=== PATIENT | female | born 1945 | race Caucasian/White ===

== ENCOUNTER 2017-09-17 23:30 | Emergency (ER) | payer OTHER ==
[2017-09-18 00:50] VITALS: BP 177/80; PULSE 100; RESP 16; TEMP 98.8; O2SAT 99
[2017-09-18] MEDS ORDERED: BUPR150CR PO (01:39)
[2017-09-18] MEDS ORDERED: AMIT25TA9 PO (01:40)
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
[2017-09-18] MEDS ORDERED: DIAZEPAM 5 MG TAB PO ONE (02:30)
[2017-09-18] MEDS ORDERED: IBUPROFEN 600 MG TAB PO ONE (02:30)
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
[2017-09-18] MEDS ORDERED: IBUP-232 PO (04:27)
[2017-09-18] MEDS ORDERED: DIAZ2 PO (04:27)
== END 2017-09-18 05:16 | disposition home or self-care (01) ==
LOC: NEPE 23:30
DX: M25.511 Pain in right shoulder (principal); M54.5 Low back pain; M25.551 Pain in right hip; V89.2XXA Person injured in unspecified motor-vehicle accident, traffic, initial encounter; F32.9 Major depressive disorder, single episode, unspecified
CPT/HCPCS: 72050; 72110; 73030; 99283